=== PATIENT | female | born 1975 ===

== ENCOUNTER 2016-04-05 22:35 | Emergency (ER) | payer MEDICAID ==
[2016-04-05 23:11] LABS: URINE BILIRUBIN NEGATIVE (NEGATIVE); URINE BLOOD 1+ (NEGATIVE); URINE GLUCOSE (UA) NEGATIVE (NEGATIVE); URINE LEUKOCYTE ESTERASE TRACE (NEGATIVE); URINE NITRITE NEGATIVE (NEGATIVE); URINE PROTEIN 1+ (NEGATIVE); URINE UROBILINOGEN 1 mg/dL (0-1 mg/dl)
[2016-04-05 23:16] LABS: HCG,QUALITATIVE URINE NEGATIVE
[2016-04-05 23:19] LABS: URINE APPEARANCE HAZY; URINE COLOR YELLOW
[2016-04-05 23:20] LABS: URINE BACTERIA 1+; URINE EPITHELIAL CELLS MODERATE /hpf; URINE MUCUS 1+
[2016-04-06] MEDS ORDERED: ONDANSETRON 4 MG/2ML 2 ML VIAL ONE (00:50)
[2016-04-06] MEDS ORDERED: LACTATED RINGERS 1,000 ML ONE (00:50)
[2016-04-06 01:21] LABS: ALBUMIN 3.7 gm/dL (3.5-5.7)
[2016-04-06 01:40] LABS: ABSOLUTE NEUTROPHIL COUNT 11.4 K/mm3 (1.8-7.7); BASO % 0.2 % (0.2-1.0); HEMATOCRIT 31.4 % (37.0-47.0); IMM NEUT # 0.1 K/mm3 (0-0.2); IMM NEUT% 0.5 % (0-1); LYMPH # 0.8 (1.0-4.8); LYMPH % 6.1 % (15-45); MEAN CELL VOLUME 76.4 fl (81.0-99.0); MEAN CORPUSCULAR HEMOGLOBIN 24.3 pg (27.0-31.0); MEAN CORPUSCULAR HGB CONC 31.8 g/dl (33.0-37.0); MEAN PLATELET VOLUME 10.5 fl (7.4-10.4); MONO % 7.3 % (4-12); NEUT % 85.9 % (43-75); PLATELET COUNT 260 K/mm3 (130-400); RED CELL DISTRIBUTION WIDTH 14.6 % (11.5-14.5)
[2016-04-06 01:47] LABS: ALB/GLOB RATIO 1.1 (>1.0)
--- NOTE | 2016-04-06 08:20 | US ---
LIMITED ABDOMINAL ULTRASOUND HISTORY: Right upper quadrant pain. Limited sonography of the right upper quadrant performed. FINDINGS: GALLBLADDER LENGTH: 6.9 cm. GALLBLADDER WALL THICKNESS: 1.6 mm. GALLBLADDER CONTENT: Multiple mobile shadowing gallstones SONOGRAPHIC CAMARILLO'S SIGN: Not elicited. COMMON BILE DUCT CALIBER: 6 mm. REGIONAL FREE FLUID: None. IMPRESSION: Cholelithiasis. No gallbladder wall thickening, sonographic Camarillo's sign, or gross biliary dilatation. Preliminary report relayed to the Emergency Medicine medical service by Dr. Vines on 04/06/2016 at 0200 hours.
== END 2016-04-06 02:21 | disposition home or self-care (01) ==
LOC: ED 22:35
DX: K80.20 Calculus of gallbladder without cholecystitis without obstruction (principal); E11.9 Type 2 diabetes mellitus without complications; R11.2 Nausea with vomiting, unspecified
CPT/HCPCS: 83690; 81025; 85025; 80053; 81001; 76705; 99284; 96374; 96361; 99283; J2405; J7120